=== PATIENT | male | born 1970 | race Caucasian/White ===

== ENCOUNTER 2018-05-17 21:08 | Emergency (ER) | payer MEDICARE ==
[~2018-05-17] VITALS: Ht 177.8 cm; Wt 75.0 kg
[2018-05-17 21:15] VITALS: BP 121/78
[2018-05-17] MEDS ORDERED: ACETAMINOPHEN 500 MG TABLET PO ONE (21:30)
[2018-05-17] MEDS ORDERED: LIDODERM 5% PATCH TD ONE ×2 (21:30→21:32)
[2018-05-17] MEDS ORDERED: ONDANSETRON ODT 4 MG PO ONE (21:30)
[2018-05-17] MEDS ORDERED: ONDANSETRON ODT 4 MG ONE (21:32)
[2018-05-17] MEDS ORDERED: ACETAMINOPHEN 500 MG TABLET ONE (21:32)
== END 2018-05-17 22:29 | disposition home or self-care (01) ==
LOC: ED 22:14
DX: S16.1XXA Strain of muscle, fascia and tendon at neck level, initial encounter (principal); R11.0 Nausea; M54.9 Dorsalgia, unspecified; M79.605 Pain in left leg; F17.200 Nicotine dependence, unspecified, uncomplicated; W10.9XXA Fall (on) (from) unspecified stairs and steps, initial encounter; Y93.89 Activity, other specified; Y92.59 Other trade areas as the place of occurrence of the external cause
CPT/HCPCS: 71045; 72050; 72110; 73590; 99283; Q0162

== ENCOUNTER 2018-05-23 09:23 | Emergency (ER) | payer MEDICARE ==
[~2018-05-23] VITALS: Ht 177.8 cm; Wt 57.3 kg
[2018-05-23 09:39] VITALS: BP 170/76
[2018-05-23] MEDS ORDERED: IBUPROFEN 600 MG TABLET ONE (10:06)
--- NOTE | 2018-05-23 10:14 | NUR ---
Pt medicated as per emar for 10/10 ribs pain.
[2018-05-23] MEDS ORDERED: IBUPROFEN 200 MG TABLET PO ONE (10:30)
--- NOTE | 2018-05-23 12:03 | NUR ---
Patient/Caregiver given discharge instructions and they have confirmed that they understand the instructions. Patient ambulatory with steady gait. Pain 08/31. Sleeping when room entered for d/c.
== END 2018-05-23 12:04 | disposition home or self-care (01) ==
LOC: ED 09:45
DX: S20.212A Contusion of left front wall of thorax, initial encounter (principal); F17.210 Nicotine dependence, cigarettes, uncomplicated; Y04.0XXA Assault by unarmed brawl or fight, initial encounter; Y93.89 Activity, other specified; Y92.89 Other specified places as the place of occurrence of the external cause; Y99.8 Other external cause status
CPT/HCPCS: 99283

== ENCOUNTER 2018-06-12 01:25 | Observation (INO) | payer MEDICARE ==
[~2018-06-12] VITALS: Ht 177.8 cm; Wt 63.3 kg
[2018-06-12 01:41] VITALS: BP 92/62
--- NOTE | 2018-06-12 02:08 | NUR ---
PT PRESENTS TO ED C/O SI W/ PLAN TONIGHT. STATES TO TRY AND HANG HIMSELF W/ HIS BELT. STATES PAST HX OF SI'S AND OD'S R/T SELF HARM. "I HAVE SEEN SOME FUCKED UP SHIT IN MY DAY, IM READY TO MEET MY MAKER." ALL BELONGINGS TAKEN FROM PT AND PUT IN 2 OF 2 BELONGINGS BAGS IN LOCKER. ROLLER DOORS IN PLACE. SITTER IN HALLWAY.
[2018-06-12] MEDS ORDERED: NICOTINE 14MG/24 HR PATCH.TD24 TD ONE (02:30)
[2018-06-12 02:46] LABS: BASOPHILS # (AUTO) 0.03 x10^3/uL (0-0.1); BASOPHILS % (AUTO) 0 % (0-1); EOSINOPHILS # (AUTO) 0.25 x10^3/uL (0-0.4); EOSINOPHILS % (AUTO) 4 % (1-7); LYMPHOCYTES # (AUTO) 1.47 x10^3/uL (1-3.4); LYMPHOCYTES % (AUTO) 23 % (22-44); MD NO; MEAN CORPUSCULAR HEMOGLOBIN 30.6 pg (27.5-34.5); MEAN CORPUSCULAR HGB CONC 34.1 g/dL (33.2-36.2); MEAN CORPUSCULAR VOLUME 89.9 fL (81-97); MEAN PLATELET VOLUME 7.7 fL (7.4-10.4); MONOCYTES # (AUTO) 0.56 x10^3/uL (0.2-0.8); MONOCYTES % (AUTO) 9 % (2-9); NEUTROPHILS # (AUTO) 4.25 x10^3/uL (1.8-6.8); NEUTROPHILS % (AUTO) 65 % (42-75); PLATELET COUNT 196 x10^3/uL (130-400); RED BLOOD COUNT 4.31 x10^6/uL (4.38-5.82); RED CELL DISTRIBUTION WIDTH 15.9 % (9.4-14.8)
--- NOTE | 2018-06-12 02:50 | NUR ---
PT SLEEPING COMFORTABLY ON GURNEY. RR EVEN AND UNLABORED. NADN. SITTER IN HALLWAY. ROLLER DOORS IN PLACE.
[2018-06-12 02:58] LABS: ALBUMIN 3.1 g/dL (3.4-5.0); ANION GAP 6 mmol/L (5-15); CALCIUM 8.2 mg/dL (8.5-10.1); CHLORIDE 101 mmol/L (98-107); CREATININE 0.94 mg/dL (0.7-1.3)
[2018-06-12 03:00] LABS: ACETAMINOPHEN < 2 mcg/mL (10-30); SALICYLATE LEVEL < 1.7 mg/dL (2.8-20.0)
--- NOTE | 2018-06-12 03:43 | NUR ---
PT SLEEPING COMFORTABLY ON GURNEY. RR EVEN AND UNLABORED. NADN. SITTER IN HALLWAY. ROLLER DOORS IN PLACE.
--- NOTE | 2018-06-12 04:38 | NUR ---
PT SLEEPING COMFORTABLY ON GURNEY. RR EVEN AND UNLABORED. NADN. SITTER IN HALLWAY. ROLLER DOORS IN PLACE.
[2018-06-12 05:15] LABS: AMPHETAMINE SCREEN, URINE Negative (Negative); BARBITURATE SCREEN, URINE Negative (Negative); BENZODIAZEPINE SCREEN, URINE Negative (Negative); CANNABINOID SCREEN, URINE Positive (Negative); COCAINE SCREEN, URINE Negative (Negative); METHADONE SCREEN, URINE Negative (Negative); OPIATE SCREEN, URINE Negative (Negative)
--- NOTE | 2018-06-12 05:25 | NUR ---
PT SLEEPING COMFORTABLY ON GURNEY. RR EVEN AND UNLABORED. NADN. SITTER IN HALLWAY. ROLLER DOORS IN PLACE.
--- NOTE | 2018-06-12 06:35 | NUR ---
referral faxed to [facility], [facility], [facility], and [facility]
[2018-06-12] MEDS ORDERED: ACETAMINOPHEN 325 MG TABLET PO PRN (07:00)
[2018-06-12] MEDS ORDERED: GUAIFENESIN/DM 200-20MG, 10ML UDC PO PRN (07:00)
[2018-06-12] MEDS ORDERED: NICOTINE 7 MG/24 HR PATCH.TD24 TD SCH (07:00)
[2018-06-12] MEDS ORDERED: ONDANSETRON ODT 4 MG PO PRN (07:00)
[2018-06-12] MEDS ORDERED: DOCUSATE 100 MG CAPSULE PO PRN (07:00)
--- NOTE | 2018-06-12 07:04 | NUR ---
PT REPORT TO SALVADOR MERLOS.
--- NOTE | 2018-06-12 07:45 | NUR ---
Report received from GAURANG Denton at 0655hrs and patient care assumed at that time, patient safe in [facility] at this time, sitter present outside room with line of sight, juice provided, patient expresses no other needs at this time.
--- NOTE | 2018-06-12 08:12 | NUR ---
RB NOTIFIED OF [id number] ETA
== END 2018-06-12 09:30 ==
LOC: ED 01:53 → EDIP 05:29
PROVIDERS: ADMIT Internal Medicine; ATTEND Internal Medicine
DX: R45.851 Suicidal ideations (principal); F31.9 Bipolar disorder, unspecified; F43.10 Post-traumatic stress disorder, unspecified; F20.9 Schizophrenia, unspecified; F41.1 Generalized anxiety disorder; F12.10 Cannabis abuse, uncomplicated; Z59.0 Homelessness; Z91.5 Personal history of self-harm; Z88.0 Allergy status to penicillin; Z72.0 Tobacco use
CPT/HCPCS: 36415; 80048; 80307; 80329; 82040; 85025; 99284; G0378; G0480